=== PATIENT | male | born 1955 | race Caucasian/White ===

== ENCOUNTER 2018-06-14 08:47 | Day surgery (SDC) | payer BC, MEDICARE ==
[2018-06-14 10:05] LABS: Hemoglobin 15.2 g/dL (14.0-18.0); Mean Corpuscular HGB CONC 33.7 g/dL (32.0-36.0); Mean Corpuscular Hemoglobin 29.3 pg (27.0-31.0); Mean Platelet Volume 6.4 fL (7.4-10.4); Platelet Count 306 thou/uL (130-400); RBC Distribution Width 12.5 % (11.5-14.5); Red Blood Cell (RBC) Count 5.17 mill/uL (4.70-6.10); White Blood Cell (WBC) Count 4.6 thou/uL (4.8-10.8)
[2018-06-14 10:28] LABS: Anion Gap 12 mmol/L (10-20); BUN (Urea Nitrogen) 18 mg/dL (8.4-25.7); Calc. Creatinine Clearance 0 mL/min (70-130); Calcium 10.1 mg/dL (7.8-10.44); Carbon Dioxide 25 mmol/L (23-31); Chloride 106 mmol/L (98-107); Estimated GFR-MDRD 73; Glucose 100 mg/dL (80-115); Potassium 4.3 mmol/L (3.5-5.1); Sodium 139 mmol/L (136-145)
[2018-06-14] MEDS ORDERED: Sodium Chloride 0.9% 10 ML ONE (11:22)
[2018-06-14] MEDS ORDERED: Fentanyl 100 MCG/2 ML VIAL ONE (11:24)
--- NOTE | 2018-06-14 13:06 | OP ---
DATE OF PROCEDURE: 06/14/2018 CIRCLE BEVELER: Joaquin Love PA-C PROCEDURES PERFORMED: Anterior cervical diskectomy C5 and C6. interbody arthrodesis, intervertebral biomechanical device, local morselized autograft, demineralized bone matrix, anterior titanium fixation, C4-C5 and C5-C6. DESCRIPTION OF PROCEDURE: The patient was brought to the operating room and intubated. He was positioned supine with the head in modest extension on a gel-filled donut. Incision was made in the right precervical area and dissected medial to the sternocleidomastoid muscle, identified the anterior cervical spine, and the level was confirmed by x-ray. We debrided the anterior osteophytes and placed distraction across the disk spaces. There was a fair bit of auto fusion occurring at both levels consistent with DISH. The discs were removed and the bony endplates were decorticated for the purpose of arthrodesis. An appropriate-sized intervertebral biomechanical PEEK device was brought into the field and filled with demineralized bone matrix and local morselized autograft, and tapped in place securely at C4-C5 and a C5-C6. Next, an anterior plate was brought into the field and secured to C4, C5, and C6 using two 14-mm screws at each level. It was then extensively irrigated and maximum hemostasis was secured. The wound was closed in anatomic layers. Job ID: [id number]
[2018-06-14] MEDS ORDERED: HYDROcodone/Acetaminophen 5/325 mg Tablet ONE (14:17)
== END 2018-06-14 14:47 | disposition home or self-care (01) ==
LOC: SDC 08:47
PROVIDERS: ATTEND Neurological Surgery
PROC: 0RG20A0 Fusion of 2 or more Cervical Vertebral Joints with Interbody Fusion Device, Anterior Approach, Anterior Column, Open Approach (ICD-10-PCS; principal; 2018-06-14)
PROC: 0RG2070 Fusion of 2 or more Cervical Vertebral Joints with Autologous Tissue Substitute, Anterior Approach, Anterior Column, Open Approach (ICD-10-PCS; principal; 2018-06-14)
DX: M50.322 Other cervical disc degeneration at C5-C6 level (principal); I12.9 Hypertensive chronic kidney disease with stage 1 through stage 4 chronic kidney disease, or unspecified chronic kidney disease; N18.9 Chronic kidney disease, unspecified; E07.9 Disorder of thyroid, unspecified; E78.5 Hyperlipidemia, unspecified; Z88.5 Allergy status to narcotic agent; Z79.51 Long term (current) use of inhaled steroids; Z79.899 Other long term (current) drug therapy
CPT/HCPCS: 76000; 80048; 85027; 93005; 93010; C1713; C1776; J0131; J3010; J3490

== ENCOUNTER 2018-06-30 10:12 | Outpatient (CLI) | payer BC, MEDICARE ==
--- NOTE | 2018-06-30 10:58 | RAD ---
CERVICAL SPINE RADIOGRAPHS FOUR VIEWS: 06/30/2018 PROVIDED CLINICAL HISTORY: Cervical radiculopathy. COMPARISON: None. FINDINGS: Cervical alignment appears normal. Vertebral body heights appear preserved. Changes of ACDF are not ed from C4 through C6, with the anterior aspects of the intervertebral disk devices projecting anteri or to the anterior vertebral body margins, on the lateral view. No prevertebral soft tissue swelling apparent. The visualized lung apices appear clear. No evidence for fracture. IMPRESSION: Postoperative changes involving the cervical spine, as above. POS: TPC
== END 2018-06-30 10:13 | disposition home or self-care (01) ==
LOC: TBSIIMAG 10:12
PROVIDERS: ATTEND Neurological Surgery
DX: M54.12 Radiculopathy, cervical region (principal); Z98.890 Other specified postprocedural states
CPT/HCPCS: 72040

== ENCOUNTER 2018-08-10 13:01 | Outpatient (CLI) | payer BC, MEDICARE ==
--- NOTE | 2018-08-10 13:22 | RAD ---
Exam: Cervical spine 3 views COMPARISON: [id number] FINDINGS: Redemonstration of uncomplicated fusion plate at C4, C5 and C6. No perihardware lucency. Disc prosthe sis at C3-4-C5 and C5-C6, unchanged. No prevertebral soft tissue swelling. Predental space is normal. Straightening of normal cervical lordosis. No evidence of fracture with regards to the visualized cer vical spine. Pression: Uncomplicated cervical fusion hardware
== END 2018-08-10 13:02 | disposition home or self-care (01) ==
LOC: TBSIIMAG 13:01
PROVIDERS: ATTEND Neurological Surgery
DX: M50.30 Other cervical disc degeneration, unspecified cervical region (principal); Z98.1 Arthrodesis status
CPT/HCPCS: 72040